=== PATIENT | female | born 1965 | race Caucasian/White ===

== ENCOUNTER 2016-07-19 13:17 | Day surgery (SDC) | payer OTHER ==
[~2016-07-19] VITALS: Ht 165.1 cm; Wt 88.5 kg
[~2016-07-19 13:17] MED LIST: ASPI325T32 PO; ATOR20TA PO; CHOL200047 PO; LOSA100T29 PO; MULT-1018 PO; NIFE30TA79 PO; NPR500T PO; OMEG1CAP2 PO; TOPI50TA32 PO; TOPI50TA88 PO; fentaNYL-PF 50 mCg/mL 2 mL Inj IVPUSH PRN
[2016-07-19 13:40] VITALS: BP 132/81; PULSE 73; RESP 17; O2SAT 98
[2016-07-19 14:59] VITALS: BP 125/69; PULSE 77; RESP 16; O2SAT 100
[2016-07-19 15:09] VITALS: BP 118/67; PULSE 72; RESP 16; O2SAT 99
--- NOTE | 2016-07-20 02:58 | ENDO ---
[address] [address] ENDOSCOPY PROCEDURE PATIENT: MARYCRUZ OLMEDO : 1965 MR#: [id number] ADMIT: 07/19/2016 JOB ID: [id number] DATE OF SERVICE: 07/19/2016 PREPROCEDURE DIAGNOSIS(ES): Colon cancer screening. POSTPROCEDURE DIAGNOSIS(ES): Colon cancer screening. PROCEDURE PERFORMED: Colonoscopy with cold forceps biopsy x1. SURGEON: Darcie Whitt MD INSTRUMENT: Olympus [id number]. MEDICATIONS: 1. Versed 7 mg. 2. Fentanyl 125 mcg. FINDINGS: 1. A small benign-appearing polyp at 38 cm in the left colon, removed with cold forceps. 2. Sigmoid diverticulosis. 3. Internal hemorrhoids. HISTORY OF PRESENT ILLNESS: This is a 50-year-old woman who presented for colon cancer screening as she approaches her 51th birthday. She is asymptomatic. DESCRIPTION OF PROCEDURE: The patient was brought to the procedure suite and placed in the left lateral decubitus position. Moderate anesthesia was induced. A digital rectal examination was performed and was normal, with the exception of a tiny external hemorrhoidal skin tag. The colonoscope was advanced to the cecum and into the terminal ileum. The distal 10 cm of the terminal ileum were identified and were normal. The entire colon was normal, with the exception of a single tiny, benign-appearing polyp at 38 cm in the left colon, which was removed with cold forceps. Sigmoid diverticula were noted in the sigmoid colon, noninflamed. Internal hemorrhoids were noted. Withdrawal time was 16 minutes. On retroflexed examination of the rectum, internal hemorrhoids were noted. The colonoscope was removed. The patient tolerated the procedure well. COMPLICATIONS: None. ESTIMATED BLOOD LOSS: None. SPECIMENS: Left colon polyp, for permanent pathology. [facility]
--- NOTE | 2016-07-23 17:18 | PATH ---
SURGICAL PATHOLOGY Attending Physician:Darcie Whitt MD CASE STATUS: Signed Out PATIENT NAME: MARYCRUZ OLMEDO PID: [id number] : 1965 DATE COLLECTED:07/19/2016 00:00 SPECIMEN: Colon, Biopsy CLINICAL HISTORY: 1. LEFT COLON @ 38CM POLYP X1 FINAL DIAGNOSIS: Left Colon at 38 cm, Polyp, Biopsy: Tubular adenoma; negative for high-grade dysplasia. ICD10: K63.5 GROSS DESCRIPTION: The specimen is received in one formalin filled container labeled with the patient's name, sublabeled "left colon polyp at 38 CM" and consists of a 0.5 x 0.3 x 0.2 CM portion of tissue which is entirely submitted in one cassette. 07/20/2016 [facility] ICD-9 CODES: CPT CODES: 1: 94902 Electronically Signed Out Deysi Gilbert MD [facility] Pathology [facility] [address], [place] [address] Technical component performed at [facility], [facility] [address], [place], [address]
== END 2016-07-19 23:59 | disposition home or self-care (01) ==
LOC: END 13:17
PROVIDERS: ATTEND Surgery
DX: Z12.11 Encounter for screening for malignant neoplasm of colon (principal); D12.4 Benign neoplasm of descending colon; K64.8 Other hemorrhoids; K57.30 Diverticulosis of large intestine without perforation or abscess without bleeding; I10 Essential (primary) hypertension; E78.5 Hyperlipidemia, unspecified
CPT/HCPCS: 45380; 99153; G0500; J7030